=== PATIENT | female | born 1970 | race Hispanic/Latino ===

== ENCOUNTER 2017-12-09 13:07 | Day surgery (SDC) | payer MEDICAID ==
[~2017-12-09 13:07] MED LIST: LACTATED RINGERS 1,000 ML IV SCH; VERSED IV NR
[2017-12-09] MEDS ORDERED: NACL BACTERIOSTATIC INFILTRATI ONE (14:15)
[2017-12-09 14:51] VITALS: BP 136/84
[2017-12-09] MEDS ORDERED: ANCEF/STERILE WATER 2 GM/20 ML IV NR (15:00)
== END 2017-12-09 15:40 | disposition home or self-care (01) ==
LOC: OR 13:07
PROVIDERS: ATTEND Urology
DX: Z85.51 Personal history of malignant neoplasm of bladder (principal); Z53.8 Procedure and treatment not carried out for other reasons; Z88.8 Allergy status to other drugs, medicaments and biological substances; Z79.899 Other long term (current) drug therapy
CPT/HCPCS: 36415; 82962; 84132; J2250; J7120; J0690

== ENCOUNTER 2019-08-24 17:23 | Emergency (ER) | payer OTHER ==
--- NOTE | 2019-08-24 19:27 | Event Note ---
ED Screening Note ED Screening Note: hx of ureteral stents, cervical 2016 and bladder cancer 2014, in remission went to [facility] last week was started cipro states she has one day left flank pain no fever +nausea no v/d +hematuria +dysuria suprapubic pressure allergy: toradol, naproxen, latex This initial assessment/diagnostic orders/clinical plan/treatment(s) is/are subject to change based on patients health status, clinical progression and re- assessment by fellow clinical providers in the ED. Further treatment and workup at subsequent clinical providers discretion. Patient/guardian urged not to elope from the ED as their condition may be serious if not clinically assessed and managed. Initial orders include: labs, UA, CT abd pelvis
[2019-08-24 20:41] LABS: Basophils % (Auto) 0.7 % (0.0-1.8); Eosinophils # (Auto) 0.1 K/mm3 (0.0-0.4); Hematocrit 37.8 % (30.3-42.9); Hemoglobin 12.9 gm/dl (10.1-14.3); Lymphocytes # (Auto) 1.5 K/mm3 (1.2-5.4); Lymphocytes % (Auto) 28.2 % (13.4-35.0); Mean Corpuscular HGB Conc 34 % (30-34); Mean Corpuscular Volume 85 fl (79-97); Monocytes # (Auto) 0.4 K/mm3 (0.0-0.8); Monocytes % (Auto) 7.8 % (0.0-7.3); Platelet Count 277 K/mm3 (140-440); Red Blood Count 4.43 M/mm3 (3.65-5.03); Red Cell Distribution Width 15.2 % (13.2-15.2)
[2019-08-24 20:59] LABS: Alanine Aminotransferase 16 units/L (7-56); BUN/Creatinine Ratio 18; Blood Urea Nitrogen 14 mg/dL (7-17); Calcium 10.1 mg/dL (8.4-10.2); Hemolysis Index 6
--- NOTE | 2019-08-24 22:15 | Cat Scan Report ---
CT abdomen pelvis w con INDICATION: Left flank pain. History of cancer TECHNIQUE: All CT scans at this location are performed using the following dose modulation technique: Automated exposure control. Helical slices were obtained through the abdomen and pelvis. 100 cc of Omnipaque 30 0 is administered. COMPARISON: None available. FINDINGS: Abdomen: The lung bases are clear. There is fatty infiltration of the liver. The spleen, pancreas, ad renal glands, and small bowel show no acute abnormality. There is mild to moderate left hydronephrosi s. No ureteral calculi are seen. There is an ostomy site in the left midabdomen with a parastomal hernia containing loops of large and small bowel. There is no obstruction or complication associated with this. Pelvis: There is wall thickening along the posterior aspect of the urinary bladder. Phleboliths are n oted in the pelvis. There is no adenopathy. There is some increased soft tissue density in the region of the left adnexa of uncertain significanc e. This may simply represent some ovarian tissue. This is a nonspecific finding. On review of bone windows, no acute osseous abnormalities are seen. IMPRESSION: . There is mild to moderate left hydronephrosis. There is wall thickening along the posterior aspect of the urinary bladder. There is an ostomy site in the left midabdomen with an uncomplicated parastomal hernia containing bow el and fat. There is some mild prominence of the soft tissue in the left adnexa is not specific. This may simply represent some ovarian tissue. This could represent scar possibly some adhesed bowel in this locatio n Signer Name: Evelio Toledo MD Signed: 08/24/2019 10:11 PM Workstation Name: [id number]
[2019-08-25] MEDS ORDERED: ONDANSETRON 4 MG/2 ML INJ IV ONE (01:30)
[2019-08-25] MEDS ORDERED: SODIUM CHLORIDE 0.9% 1000 ML 1,000 ML IV ONE (01:30)
[2019-08-25] MEDS ORDERED: cefTRIAXone/NS 1 GM/50 ML 1 GM/50 ML BAG IV ONE (01:30)
[2019-08-25 02:02] LABS: Bacteria,Urine 2+ /HPF (Negative); Bilirubin,Urine NEG (Negative); Blood,Urine LG (Negative); Color,Urine Yellow (Yellow); Urobilinogen,Urine < 2.0 mg/dL (<2.0)
[2019-08-25 02:03] LABS: RBC,Urine > 182.0 /HPF (0.0-6.0); WBC,Urine > 182.0 /HPF (0.0-6.0)
--- NOTE | 2019-08-25 05:18 | Emergency Department Report ---
ED Abdominal Pain HPI - General Chief Complaint: Abdominal Pain Stated Complaint: BLOOD IN URINE/BACK PAIN Time Seen by Provider: 08/24/19 19:23 Source: patient Mode of arrival: Ambulatory Limitations: No Limitations - History of Present Illness Initial Comments: Patient is a 49-year-old white female with a history of hypertension, oxj-wzbaymw-pflsepswc diabetes, chronic recurrent kidney stones with ureteral stents, history of cervical and bladder cancers presents to the ED with complaint of acute onset persistent left flank pain that radiates to the lower abdomen, lower back with hematuria and intermittent nausea and vomiting for the last 1 week, worse in the last 2 days. Patient states that she has been taking ciprofloxacin 500 mg twice a day for the last 1 week for recently diagnosed urinary tract infection by her primary care physician but in the last 2 days her symptoms got worse, where by high hematuria became more pronounced on the left flank pain got worse. Patient denies fever, chills, diarrhea, dizziness, chest pain, shortness of breath, diarrhea, dizziness, numbness and tingling or weakness of lower extremities bilaterally, change in vision or cough. MD Complaint: abdominal pain (lower abdominal pain), flank pain (left flank pain and low back pain), other (hematuria) -: Sudden, days(s) (2), week(s) (1) Location: L flank Radiation: suprapubic, L flank, back (lower) Migration to: no migration Severity: severe Severity scale (0 -10): 7 Quality: aching, sharp Consistency: constant Improves With: nothing Worsens With: nothing Associated Symptoms: denies other symptoms, nausea, vomiting, hematuria. denies: diarrhea, fever, chills, constipation, dysuria, hematemesis, hematochezia, melena, anorexia, syncope - Related Data Home Medications Medication Instructions Recorded Confirmed Last Taken LORazepam [Ativan] 1 mg PO BID 04/08/16 12/09/17 12/08/17 21:00 glipiZIDE XL [Glucotrol Xl] 10 mg PO BID 04/08/16 12/09/17 12/08/17 09:00 metFORMIN [Glucophage] 500 mg PO DAILY 04/17/16 12/09/17 12/08/17 09:00 Gabapentin [Neurontin] 400 mg PO BID 12/03/17 12/09/17 12/08/17 21:00 Lisinopril/Hydrochlorothiazide 20 each PO DAILY 12/09/17 12/09/17 12/08/17 21:00 [Zestoretic 10-12.5 mg Tablet] Previous Rx's Medication Instructions Recorded Last Taken Type HYDROcodone/APAP 5-325 [[place] 1 each PO Q6HR PRN #12 tablet 08/25/19 Unknown Rx 5/325] Ondansetron [Zofran ODT TAB] 8 mg PO Q8HR PRN #20 tab.rapdis 08/25/19 Unknown Rx cephALEXin [Keflex] 500 mg PO Q6HR #40 capsule 08/25/19 Unknown Rx Allergies Allergy/AdvReac Type Severity Reaction Status Date / Time ketorolac [From Toradol] Allergy LOW BP Verified 12/03/17 10:48 latex Allergy Rash Verified 04/08/16 12:28 naproxen [From Naprosyn] Allergy Shortness Verified 12/03/17 10:48 of Breath ED Review of Systems ROS: Stated complaint: BLOOD IN URINE/BACK PAIN Other details as noted in HPI Constitutional: denies: chills, fever Eyes: denies: eye pain, eye discharge, vision change ENT: denies: ear pain, throat pain Respiratory: denies: cough, shortness of breath, SOB with exertion, wheezing Cardiovascular: denies: chest pain, palpitations, dyspnea on exertion, edema, paroxysmal nocturnal dyspnea, other Endocrine: no symptoms reported Gastrointestinal: abdominal pain (left flank pain), nausea, vomiting. denies: diarrhea, constipation, hematemesis, melena, hematochezia Genitourinary: hematuria. denies: urgency, dysuria, discharge, abnormal menses Musculoskeletal: back pain (lower). denies: joint swelling, arthralgia Skin: denies: rash, lesions Neurological: denies: headache, weakness, paresthesias Psychiatric: denies: anxiety, depression Hematological/Lymphatic: denies: easy bleeding, easy bruising ED Past Medical Hx - Past Medical History Hx Hypertension: Yes (X 15 YRS) Hx Diabetes: Yes Hx GERD: Yes Hx Seizures: No Hx Kidney Stones: Yes Hx HIV: No - Surgical History Additional Surgical History: colon surgery, stent placement - Social History Smoking Status: Never Smoker Substance Use Type: None - Medications Home Medications: Home Medications Medication Instructions Recorded Confirmed Last Taken Type LORazepam [Ativan] 1 mg PO BID 04/08/16 12/09/17 12/08/17 21:00 History glipiZIDE XL [Glucotrol Xl] 10 mg PO BID 04/08/16 12/09/17 12/08/17 09:00 History metFORMIN [Glucophage] 500 mg PO DAILY 04/17/16 12/09/17 12/08/17 09:00 History Gabapentin [Neurontin] 400 mg PO BID 12/03/17 12/09/17 12/08/17 21:00 History Lisinopril/Hydrochlorothiazide 20 each PO DAILY 12/09/17 12/09/17 12/08/17 21:00 History [Zestoretic 10-12.5 mg Tablet] HYDROcodone/APAP 5-325 [[place] 1 each PO Q6HR PRN #12 tablet 08/25/19 Unknown Rx 5/325] Ondansetron [Zofran ODT TAB] 8 mg PO Q8HR PRN #20 tab.rapdis 08/25/19 Unknown Rx cephALEXin [Keflex] 500 mg PO Q6HR #40 capsule 08/25/19 Unknown Rx ED Physical Exam - General Limitations: No Limitations General appearance: alert, in no apparent distress - Head Head exam: Present: atraumatic, normocephalic, normal inspection - Eye Eye exam: Present: normal appearance, PERRL, EOMI Pupils: Present: normal accommodation - ENT ENT exam: Present: normal exam, normal orophraynx, mucous membranes moist, TM's normal bilaterally, normal external ear exam - Neck Neck exam: Present: normal inspection, full ROM. Absent: tenderness, lymphadenopathy - Respiratory Respiratory exam: Present: normal lung sounds bilaterally. Absent: respiratory distress, wheezes, rales, rhonchi, chest wall tenderness, accessory muscle use, decreased breath sounds, prolonged expiratory - Cardiovascular Cardiovascular Exam: Present: regular rate, normal rhythm, normal heart sounds. Absent: systolic murmur, diastolic murmur, rubs, gallop - GI/Abdominal GI/Abdominal exam: Present: soft, tenderness (palpable mild left flank tenderness), normal bowel sounds. Absent: guarding, rebound, hyperactive bowel sounds, hypoactive bowel sounds, mass - Extremities Exam Extremities exam: Present: normal inspection, full ROM, normal capillary refill - Back Exam Back exam: Present: normal inspection, full ROM. Absent: tenderness, muscle spasm, paraspinal tenderness - Neurological Exam Neurological exam: Present: alert, oriented X3, CN II-XII intact, normal gait, reflexes normal - Psychiatric Psychiatric exam: Present: normal affect, normal mood - Skin Skin exam: Present: warm, dry, intact, normal color. Absent: rash ED Course Vital Signs 08/24/19 17:44 Temperature 98.5 F Pulse Rate 95 H Respiratory 17 Rate Blood Pressure 140/85 O2 Sat by Pulse 98 Oximetry ED Medical Decision Making - Lab Data Result diagrams: 08/24/19 20:15 08/24/19 20:15 - Radiology Data Radiology results: report reviewed, image reviewed Findings [facility] [address] [place] [address] Cat Scan Report Signed Patient: JOE CARROLL MR#: [id number] : 1970 Acct:[id number] Age/Sex: 49 / F ADM Date: 08/24/19 Loc: ED Attending Dr: Ordering Physician: KEVIN KAPADIA Date of Service: 08/24/19 Procedure(s): CT abdomen pelvis w con Accession Number(s): [id number] cc: KEVIN KAPADIA CT abdomen pelvis w con INDICATION: Left flank pain. History of cancer TECHNIQUE: All CT scans at this location are performed using the following dose modulation technique: Automated exposure control. Helical slices were obtained through the abdomen and pelvis. 100 cc of Omnipaque 300 is administered. COMPARISON: None available. FINDINGS: Abdomen: The lung bases are clear. There is fatty infiltration of the liver. The spleen, pancreas, adrenal glands, and small bowel show no acute abnormality. There is mild to moderate left hydronephrosis. No ureteral calculi are seen. There is an ostomy site in the left midabdomen with a parastomal hernia containing loops of large and small bowel. There is no obstruction or complication associated with this. Pelvis: There is wall thickening along the posterior aspect of the urinary bladder. Phleboliths are noted in the pelvis. There is no adenopathy. There is some increased soft tissue density in the region of the left adnexa of uncertain significance. This may simply represent some ovarian tissue. This is a n onspecific finding. On review of bone windows, no acute osseous abnormalities are seen. IMPRESSION: . There is mild to moderate left hydronephrosis. There is wall thickening along the posterior aspect of the urinary bladder. There is an ostomy site in the left midabdomen with an uncomplicated parastomal hernia containing bowel and fat. There is some mild prominence of the soft tissue in the left adnexa is not specific. This may simply represent some ovarian tissue. This could represent scar possibly some adhesed bowel in this location Signer Name: Evelio Toledo MD Signed: 08/24/2019 10:11 PM Workstation Name: [id number] Transcribed By: SS Dictated By: Evelio Toledo MD Electronically Authenticated By: Evelio Toledo MD Signed Date/Time: 08/24/192210 DD/ 03 TD/TT: - Medical Decision Making This is a 49-year-old female with a history of hypertension, tzs-pdmuxlb-edjcrltjj diabetes, chronic recurrent kidney stones with ureteral st ents, history of cervical and bladder cancers presents to the ED with complaint of acute onset persistent left flank pain that radiates to the lower abdomen, lower back with hematuria and intermittent nausea and vomiting for the last 1 week, worse in the last 2 days. In the ED, patient is alert and oriented 3 and is not in distress but appears uncomfortable. Patient is hemodynamically stable. Lab test results were reviewed and showed hyperglycemia at 266 mg/dL, and urinalysis showed significant urinary tract infection with >182 WBCs, moderate leukocyte esterase, 2+ bacteria in the urine and gross hematuria. The rest of the lab test results are nonactionable. Abdomen pelvis CT scan without contrast shows is mild to moderate left hydronephrosis. There is wall thickening along the posterior aspect of the urinary bladder. There is an ostomy site in the left midabdomen with an uncomplicated parastomal hernia containing bowel and fat. There is some mild prominence of the soft tissue in the left adnexa is not specific. This may simply represent some ovarian tissue. This could represent scar possibly some adhesed bowel in this location. Patient has been taking ciprofloxacin for 1 week with no relief. Patient was treated in the ED for pain and also given normal saline 1 L IV bolus with antiemetics. Patient also received Rocephin 1 g IV 1. On reevaluation, patient's pain is we ll controlled with medications. The patient advised to stop taking ciprofloxacin. Patient was discharged home on a different antibiotic Keflex 500 mg every 6 hours with pain medications and antiemetics, and was advised to drink plenty of fluids, follow-up with her urologist in the next 24-48 hours for reevaluation or return to the ED immediately if symptoms get worse. - Differential Diagnosis Kidney stones; UTI; Pyelonephritis; Colitis; Diverticulitis; Dehydration Critical care attestation.: If time is entered above; I have spent that time in minutes in the direct care of this critically ill patient, excluding procedure time. ED Disposition Clinical Impression: Acute abdominal pain in left flank, Acute urinary tract infection, Nausea and vomiting in adult Disposition: TO HOME OR SELFCARE Is pt being admited?: No Does the pt Need Aspirin: No Condition: Stable Instructions: Abdominal Pain (ED), Urinary Tract Infection in Women (ED), Flank Pain (ED) Additional Instructions: Take medications with food, drink plenty of fluids and follow-up with your urologist in the next 24-48 hours for reevaluation. Return to the ED immediately if symptoms get worse. Consider following up with your primary care physician in 7-10 days for reevaluation. Prescriptions: cephALEXin [Keflex] 500 mg PO Q6HR #40 capsule HYDROcodone/APAP 5-325 [[place] 5/325] 1 each PO Q6HR PRN #12 tablet PRN Reason: Pain Ondansetron [Zofran ODT TAB] 8 mg PO Q8HR PRN #20 tab.rapdis PRN Reason: Nausea Referrals: TOMÁS MEJÍA MD [Staff Physician] - 3-5 Days Time of Disposition: 05:26 Print Language: ZAMBIAN
[2019-08-25 05:42] VITALS: BP 104/64
== END 2019-08-25 05:43 | disposition home or self-care (01) ==
LOC: ED 17:23
DX: N39.0 Urinary tract infection, site not specified (principal); I10 Essential (primary) hypertension; E11.9 Type 2 diabetes mellitus without complications; K21.9 Gastro-esophageal reflux disease without esophagitis; Z98.890 Other specified postprocedural states; Z79.899 Other long term (current) drug therapy; Z88.6 Allergy status to analgesic agent; Z91.041 Radiographic dye allergy status
CPT/HCPCS: 36415; 74177; 80053; 81001; 85025; 87086; 96365; 96375; 99284; J0696; J2405; J7030; Q9967